=== PATIENT | male | born 1960 | race Caucasian/White ===

== ENCOUNTER → 2017-02-16 | Outpatient (CLI) | payer OTHER | LOC: FIMAGING 10:06 | PROVIDERS: ATTEND Internal Medicine | DX: M51.36 Other intervertebral disc degeneration, lumbar region (principal); M51.27 Other intervertebral disc displacement, lumbosacral region; M12.88 Other specific arthropathies, not elsewhere classified, other specified site ==

== ENCOUNTER → 2017-03-20 | Outpatient (CLI) | payer OTHER | LOC: BMCIMAGING 16:07 | PROVIDERS: ATTEND Internal Medicine | DX: M99.71 Connective tissue and disc stenosis of intervertebral foramina of cervical region (principal); M47.892 Other spondylosis, cervical region ==

== ENCOUNTER → 2017-04-05 | Outpatient (CLI) | payer OTHER | LOC: FIMAGING 08:53 | PROVIDERS: ATTEND Internal Medicine | DX: M46.92 Unspecified inflammatory spondylopathy, cervical region (principal); M50.322 Other cervical disc degeneration at C5-C6 level ==